=== PATIENT | female | born 1980 | race African-American/Black ===

== ENCOUNTER 2022-04-03 19:07 | Emergency (ER) | payer SELFPAY ==
[~2022-04-03] VITALS: Ht 180.3 cm; Wt 142.0 kg
== END 2022-04-03 22:10 | disposition home or self-care (01) ==
LOC: FSED 19:23
DX: R42 Dizziness and giddiness (principal); E11.65 Type 2 diabetes mellitus with hyperglycemia; D64.9 Anemia, unspecified; F41.9 Anxiety disorder, unspecified; F17.210 Nicotine dependence, cigarettes, uncomplicated
CPT/HCPCS: 80053; 81003; 81025; 85025; 99283